=== PATIENT | female | born 2000 | race African-American/Black ===

== ENCOUNTER 2024-06-04 20:29 | Emergency (ER) | payer MEDICAID ==
[~2024-06-04] VITALS: Ht 167.6 cm; Wt 90.7 kg
[2024-06-04 20:48] VITALS: BP_SYST 127; PULSE 77; RESP 16; TEMP 97.1; O2SAT 98
[2024-06-05] MEDS ORDERED: IBUP-1969 PO (00:24)
[2024-06-05 00:32] VITALS: BP_SYST 130; PULSE 79; RESP 17; TEMP 97.3; O2SAT 98
== END 2024-06-05 00:30 | disposition home or self-care (01) ==
LOC: SED 20:29
DX: N64.4 Mastodynia (principal)
CPT/HCPCS: 76642; 81025; 99284